=== PATIENT | male | born 1950 | race Caucasian/White ===

== ENCOUNTER 2022-10-18 14:35 | Outpatient (CLI) | payer MEDICARE, BC | END 2022-10-18 14:36 | disposition home or self-care (01) | LOC: CSHMRI 14:35 | PROVIDERS: ATTEND Anesthesiology Pain Medicine | DX: M54.16 Radiculopathy, lumbar region (principal); M47.816 Spondylosis without myelopathy or radiculopathy, lumbar region | CPT/HCPCS: 72148 ==

== ENCOUNTER 2024-01-14 08:01 | Outpatient (CLI) | payer MEDICARE | END 2024-01-14 08:02 | disposition home or self-care (01) | LOC: CSHMRI 08:01 | PROVIDERS: ATTEND Anesthesiology Pain Medicine | DX: M51.16 Intervertebral disc disorders with radiculopathy, lumbar region (principal); M48.061 Spinal stenosis, lumbar region without neurogenic claudication | CPT/HCPCS: 72148 ==